=== PATIENT | female | born 1995 | race Caucasian/White ===

== ENCOUNTER 2016-06-01 23:11 | Inpatient (IN) | payer OTHER ==
[~2016-06-01] VITALS: Ht 175.3 cm; Wt 72.6 kg
[~2016-06-01 23:11] MED LIST: Docusate Sodium PO; FERR325T39 PO; Hydrocodone/Acetaminophen PO; Ibuprofen PO; PREN1TAB80 PO
[2016-06-02 00:55] LABS: Mean Corpuscular Hemoglobin 28.1 pg (27.0-35.0); Platelet Count 248 bil/L (150-400)
[2016-06-02] MEDS ORDERED: Methylergonovine 0.2 mg/mL Inj IM PRN ×2 (01:05→04:05)
[2016-06-02] MEDS ORDERED: Oxytocin 30 Units/500 mL LR 30 UNITS in IV Premix 1 EACH IV PRN (01:05)
[2016-06-02] MEDS ORDERED: Sodium Chloride LOK Flush 10 mL Syringe IVFLUSH PRN (01:05)
[2016-06-02] MEDS ORDERED: Hemorrhage Kit, Post Partum XX ONE ×2 (01:05→04:05)
[2016-06-02] MEDS ORDERED: Oxytocin 10 Unit/mL Inj IM PRN ×2 (01:05→04:05)
[2016-06-02] MEDS ORDERED: Ondansetron 2 mg/mL 2 mL Inj IVPUSH PRN ×2 (01:05→01:35)
[2016-06-02] MEDS ORDERED: Carboprost 250 mCg/mL Inj IM PRN (01:05)
[2016-06-02] MEDS: Lactated Ringer's 1,000 ML IV PRN ×2 (01:22→01:54)
[2016-06-02] MEDS ORDERED: fentaNYL 2 mCg/mL-Bupivicaine 0.125% 100 mL Premix EPIDURAL ONE (01:30)
[2016-06-02] MEDS ORDERED: Lactated Ringer's 500 ML IV ONE (01:33)
[2016-06-02] MEDS ORDERED: Phenylephrine/NS-PF 100 mCg/mL 5 mL Syringe IVPUSH PRN (01:35)
[2016-06-02] MEDS ORDERED: EPHEDrine Sulfate 50 mg/mL Inj IVPUSH PRN (01:35)
[2016-06-02] MEDS ORDERED: Atropine 1 mg/10 mL (Code) Syringe IVPUSH PRN (01:35)
[2016-06-02] MEDS ORDERED: fentaNYL 2 mCg/mL-Bupiv 0.125% 100 ML EPIDURAL SCH (01:35)
--- NOTE | 2016-06-02 01:35 | PCM.HPANE ---
Patient Data Surgeon Admitting Provider:Gely Bryant MD Attending Provider:Gely Bryant MD Primary Care Physician:Henok Casanova MD Other Provider:Odilia Leon Anesthesia Reason for Visit Active Labor ACTIVE LABOR Ht/WT & BMI Body Mass Index Allergies Coded Allergies: No Known Allergies (Unverified Allergy, Unknown, 05/17/14) Medications Active Scripts Vits W-Ca,Fe,FA(<1Mg) ( Vitamins)1 Each Tablet1 Each PO DAILY # 30 TABLET Prov:Sridevi Peralta MD 05/23/14 Ferrous Sulfate (Iron)325 Mg [id number] Mg PO DAILY #14 TABLET Prov:Sridevi Peralta MD 05/23/14 [Ibuprofen] (Motrin)600 MG TABLET No Conflict [id number] Mg PO Q6H PRN For Mild Pain #30 TABLET Prov:Sridevi Peralta MD 05/23/14 [Hydrocodone/Acetaminophen] ([place] 5-325)1 TAB TABLET No Conflict Check1-2 Tab PO Q4-6H PRN For Pain #5 TABLET Prov:Sridevi Peralta MD 05/23/14 [Docusate Sodium] (Colace)100 MG CAPSULE No Conflict [id number] Mg PO BID PRN For Constipation #20 CAPSULE Prov:Sridevi Peralta MD 05/23/14 History Hx of Heart Problems?: No Hx of Respiratory Problem?: No Hx Neurologic Problems?: No Hx of GI Problems?: Yes Gastrointestinal History: Positive for:: Heartburn Female Hx: Positive for:: Currently Hx Surgeries?: No Smoking Status: Smoker Current Status UNK Stop/Bang Treated for Sleep Apnea?: No Do You Have a CPAP Machine?: No MOOKIE Risk Assessment: Low Risk, <3 Yes Risk Assessment Category Category 1A: Patient has history of documented sleep apnea, and HAS NOT received any narcotic, sedative or anesthesia administration during this stay. Category 1B: Patient has history of documented sleep apnea, and HAS received any narcotic , sedative or anesthesia administration during this stay Category 2: Patient has SUSPECTED Obstructive Sleep Apnea, and HAS received any narcotic , sedative or anesthesia administration during this stay. Category 3: Patient has SUSPECTED Obstructive Sleep Apnea and HAS NOT received narcotic, sedative or anesthesia administration during this stay. Category 4: Outpatient in Procedural Areas with known sleep apnea or who screen positive for High Risk via the STOP/BANG questionnaire. Exam Exam General Appearance: Oriented X3 HEENT/AIRWAY: MP 2 Lungs: Normal Air Movement Heart: Regular Rate/Rhythm Meds/Labs/Diagnostics Labs Test 06/02/16 00:35 06/02/16 00:39 06/02/16 01:18 Hold Purple Top Tube Received (Received) Hold [place] Top Tube Received (Received) White Blood Count 15.7th/mm3 (3.8-10.1) Red Blood Count 3.77mil/mm3 (3.90-5.20) Hemoglobin 10.6g/dL (12.0-15.6) Hematocrit 32.8% (35.0-46.0) Mean Corpuscular Volume 87.0fL (81-100) Mean Corpuscular Hemoglobin 28.1pg (27.0-35.0) Mean Corpuscular Hemoglobin Concent 32.3% (32.0-37.0) Red Cell Distribution Width 12.5% (12.3-15.4) Platelet Count 248bil/L (150-400) Hematology Comments Rbc Blood Urea Nitrogen 8mg/dL (6-20) Creatinine 0.49mg/dL (0.57-1.00) Uric Acid 5.1mg/dL (2.6-7.2) Aspartate Amino Transf (AST/SGOT) 16U/L (0-50) Alanine Aminotransferase (ALT/SGPT) 11U/L (0-32) Plan Impression Patient chart reviewed, patient interviewed and anesthestic plan with risks, benefits, and alternatives discussed, and informed consent obtained. ASA Physical Status: ASA2 Mod Systemic Disease Anesthetic Plan: Epidural Bene/Risks/Altern/Consents: Yes HP Complete Prior to Induction: Yes Rey Pete MD Jun 02, 2016 01:35
[2016-06-02] MEDS ORDERED: HYDROcodone-APAP 5-325 mg Tablet PO PRN (04:05)
[2016-06-02] MEDS ORDERED: LANOlin HPA 7 Gm Ointment TOPICAL PRN (04:05)
--- NOTE | 2016-06-02 04:10 | PCM.OBVAG ---
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 She pushed for less than 20 minutes. SROM during pushing - clear fluid. GBS reportedly negative. OA delivery with both shoulders delivering together, horizontally. Baby to mothers chest, with stimulation, good cry. Cord cut a minute later. 3 vessel. Placenta delivered at 5 minutes, small, intact, all membranes apparently delivered. No tears. Uterus contracted readily. Blood loss 100 ml or less. Specimen Specimens: Placenta IV Intake/Output Catheters: None Post Procedure Plan Post delivery Condition: Mom stable Gely Bryant MD Jun 02, 2016 04:10
--- NOTE | 2016-06-02 04:23 | PCM.HPOB ---
Subjective Date of Service: Jun 02, 2016 Referring Provider: Admitting Physician: Gely Bryant MD Primary Care Physician: Henok Casanova MD Attending Physician: Gely Bryant MD Chief Complaint Spontaneous Labor/Dilation at 39 0/7 weeks. History of Present History of Present Illness Care at [facility] in [place] with Dr. Hernández. Went to [facility] and discharged home at 7 pm last night. Had been 3 cm for 2 weeks and apparently was unchanged so went home to [place], where she had recently moved. Returned here at 11 pm with progressing labor contractions. She was 4 cm on first check, then 6 cm, when I was contacted. Epidural was placed. Records were obtained. GBS is negative. Labor progressed to the point where she was complete by 3:30 AM. OB History: (5), Para (1), (3), Living (1) Obstetrical Complications: None Past Medical History Obstetrical History: at [address] Khalil 2 years ago. D and C for SAB at 14 weeks Late for OB care as unaware of . Smoking Status: Unknown if Ever Smoker Hx Alcohol Use: No Hx Substance Use: Yes (marijuana) Past Family History Living Arrangement: with Family Review of Systems Constitutional: Y: Change of appitite, Chills, Dizziness, Fever, Malaise, Other , Pain, Sweats, Weakness, Weight loss Eyes: Denies: Blurred Vision, Conjunctive Inflammation, Double Vision, Eyelid Inflammation, Other, Pain, Redness, Vision Changes ENT: Denies: Dental Problems, Dysphagia, Ear Discharge, Ear Pain, Hoarseness, Membranes Dry, Nasal Congestion, Nose Discharge, Nose Pain, Other, Throat Pain, Tinnitus, Ulcers/Sores in Mouth Cardiovascular: Denies: Chest Pain, Edema, Orthopnea, Other, Palpitations, SOB while laying flat Respiratory: Denies: Cough, Cough with bloody sputum, Other, Pleuritic Chest Pain, Pleuritic Chest Pain, SOB with Exertion, Sputum, Wheezing Gastrointestinal: Reports: Abdominal Pain Genitourinary: Denies: Anuria, Change in Frequency, Dysuria, Hematuria, Incontinence, Nocturia, Other, Retention Musculoskeletal: Denies: Back Pain, Deformity, Limitation of Function, Neck Pain, Other, Redness, Shoulder Pain, Swelling Skin/Breasts: Denies: Bruising, Discharge, Dry or Flakiness, Jaundice, Lesions , Masses, Mastalgia, Other, Rash, Scars, Ulcers Skin: Denies: Bruising, Dry or Flakiness, Jaundice, Lesions, Other, Rash, Scars , Ulcers Neurological: Denies: Change in Speech, Confusion, Dizziness, Incoordination, Numbness, Other, Seizures, Somnolence, Tremors, Weakness Psychologic: Denies: Agitation, Anxious, Apprehensive, Depression, Insomnia, Instability, Nervousness, Other Endocrine: Denies: Blood Glucose Review, Change in Appitite, Diaphoresis, Excessive Thirst, Intolerent to Heat/Cold, Other, Recent A1C, Urinating frequently Hematologic: Denies: Abnormal bleeding, Adenopathy, Bruising, Other Medications Home medications PNV Allergy Coded Allergies: No Known Allergies (Unverified Allergy, Unknown, 05/17/14) Exam Vital Signs FHT 130's and reactive T 97.3 Constitutional: Well-developed, Well-nourished, Normal habitus, No deformities , Well-groomed HEENT: Atraumatic Lungs: Clear to Auscultation, Normal Air Movement Heart: Exam Unremarkable, No Murmurs/Rubs/Gallops Abdomen: Gravid, Normal bowel sounds, Soft, No tenderness, No masses Lymphatic: Normal: Neck Palpation of Nodes Extremities: Warm, No Edema Neurological/Psychiatric: Alert, Oriented X3, No Acute Distress Neuro: Grossly Neurologically Intact, Normal DTRs, No Clonus noted Gynecologic: Normal: External Genitalia, Abnormal: Vagina/Pelvic Support ( Midline posterior vaginal linear ridge at distal 6 cm of vagina. ) Labs/Diagnostics Maternal Blood Type: O (Positive) Group B Strep Results: Negative Previous with GBS: No Rubella: Immune Lab History: Positive for: Hx Chicken Pox Additional Information Glucose screen of 79 - 1 hour. Positive marijuana in office and here today. OB Intrapartum Assessment/Plan Assessment at 39 weeks High Protein - random, in urine. Other HELLP labs were normal. Pain Evaluation: Adequate Pain Control Post plan: Continue routine post care, Discharge home tomorrow Gely Bryant MD Jun 02, 2016 04:23
[2016-06-02] MEDS ORDERED: Benzocaine (Dermoplast) 20% 60 Gm Spray TOPICAL PRN (07:00)
[2016-06-02] MEDS ORDERED: Witch Hazel-Glycerin Pads TOPICAL PRN (07:00)
[2016-06-02] MEDS: Lactated Ringer's 1,000 ML IV SCH ×3 (12:02→17:33)
[2016-06-02] MEDS: Sodium Chloride LOK Flush 10 mL Syringe IVFLUSH SCH ×2 (12:32→19:01)
[2016-06-03 06:48] LABS: Mean Corpuscular Hemoglobin 27.7 pg (27.0-35.0); Mean Corpuscular Volume 88.5 fL (81-100)
--- NOTE | 2016-06-03 07:09 | PCM.DIOB ---
Obstetrical Disch Instruction Date of Service: Jun 03, 2016 Dates of Hospitalization Date of Hospital Admission Jun 02, 2016 at 00:35 Providers Admitting Physician: Gely Bryant MD Primary Care Physician: Henok Casanova MD Attending Physician: Gely Bryant MD Discharge Diagnosis Discharge Diagnosis Post Operative diagnosis 39 Weeks Problems: Diet Discharge Diet: No restrictions Activity Discharge Activity-General: Pelvic Rest for 6 weeks, Be up and about, Balance rest and activity Dressing and Incisional Care Hygiene: May shower Follow Up Plan Follow Up Plan Follow up with Dr. Hernández at [facility] in one week. Follow-up Provider (F9): Art Hernández MD Follow-up appointment: Weeks (1 ) Call your provider for: Fever or Chills, Shortness of breath, Heavy vaginal bleeding, Epigastric pain, Excessive constipation, Vaginal discomfort, Red painful breasts Gely Bryant MD Jun 03, 2016 07:08
[2016-06-03] MEDS ORDERED: FERR325T39 PO (07:10)
[2016-06-03] MEDS ORDERED: IBUP800T28 PO (07:10)
[2016-06-03] MEDS ORDERED: HYDR-4003 PO (07:10)
--- NOTE | 2016-06-03 07:15 | PCM.DC.OB ---
Obstetrical Discharge Summary Date of Service Jun 03, 2016 Date of hospital admission Jun 02, 2016 at 00:35 Date of Discharge: Jun 03, 2016 Providers Admitting Physician: Gely Bryant MD Primary Care Physician: Henok Casanova MD Attending Physician: Gely Bryant MD Diagnosis at Time of Discharge 39 week Problems: Brief History and Physical: Care at [facility] in [place] with Dr. Hernández. Went to [facility] and discharged home at 7 pm last night. Had been 3 cm for 2 weeks and apparently was unchanged so went home to [place], where she had recently moved. Returned here at 11 pm with progressing labor contractions. She was 4 cm on first check, then 6 cm, when I was contacted. Epidural was placed. Records were obtained. GBS is negative. Labor progressed to the point where she was complete by 3:30 AM. Hospital Course: On my arrival at 3 : 30 am approximately, she was complete, vertex, 2+ station. She pushed for less than 20 minutes. SROM during pushing - clear fluid. GBS reportedly negative. OA delivery with both shoulders delivering together, horizontally. Baby to mothers chest, with stimulation, good cry. Cord cut a minute later. 3 vessel. Placenta delivered at 5 minutes, small, intact, all membranes apparently delivered. No tears. Uterus contracted readily. Blood loss 100 ml or less. Today she is having very little bleeding and is resting in bed enjoying her baby. She is smiling more than most day one mothers. Hgb is down to 9.6 so she will be going home with Iron. She will follow up for [place] with Dr. Townsend in [place] or with me in [place]. Heart is RRR without murmur Lungs are CTAB Abdomen is normal. Uterus is contracted. No ankle edema or calf tenderness Ferrous Sulfate (Iron) 325 Mg Tablet 325 MG PO DAILY Prescribed by: GERI BRYANT MD Hydrocodone-Acetaminophen 5-325 mg (Hydrocodone-Acetaminophen 5-325 mg) 1 Each Tablet 1-2 TABLET PO Q4H PRN PRN For Pain Prescribed by: GERI BRYANT MD Ibuprofen (Ibuprofen) 800 Mg Tablet 800 MG PO Q6H PRN PRN For Pain Prescribed by: GERI BRYANT MD Vits W-Ca,Fe,FA(<1Mg) ( Vitamins) 1 Each Tablet 1 EACH PO DAILY Prescribed by: JESSICA MEJÍA MD Discontinued Medications ([Docusate Sodium]) 100 MG CAPSULE 100 MG PO BID PRN PRN For Constipation Prescribed by: JESSICA MEJÍA MD ([Hydrocodone/Acetaminophen]) 1 TAB TABLET 1-2 TAB PO Q4-6H PRN PRN For Pain Prescribed by: JESSICA MEJÍA MD ([Ibuprofen]) 600 MG TABLET 600 MG PO Q6H PRN PRN For Mild Pain Prescribed by: JESSICA MEJÍA MD Disposition Home today Follow-up plan Mirena for control Iron for anemia. Discharge Diet: No restrictions Discharge Activity-General: Pelvic Rest for 6 weeks, Try not to overdue, Be up and about, Balance rest and activity Gely Bryant MD Jun 03, 2016 07:15
[2016-06-03] MEDS: Lactated Ringer's 1,000 ML IV SCH ×2 (08:00)
[2016-06-03] MEDS: Sodium Chloride LOK Flush 10 mL Syringe IVFLUSH SCH (08:00)
[2016-06-03 09:05] VITALS: BP 128/60; PULSE 62; RESP 20
== END 2016-06-03 13:38 | disposition home or self-care (01) | DRG 775 ==
LOC: FBCO 23:11 → FBC 06-02 00:35
PROVIDERS: ADMIT Family Medicine; ATTEND Family Medicine
PROC: 10E0XZZ Delivery of Products of Conception, External Approach (ICD-10-PCS; principal; 2016-06-02)
DX: O80 Encounter for full-term uncomplicated delivery (principal); Z3A.39 39 weeks gestation of pregnancy; Z37.0 Single live birth